=== PATIENT | female | born 1960 | race Caucasian/White ===

== ENCOUNTER 2017-07-20 15:16 | Outpatient (CLI) | payer BC | END 2017-07-20 15:17 | disposition home or self-care (01) | LOC: BICMAMMO 15:16 | PROVIDERS: ATTEND Obstetrics & Gynecology | DX: Z12.31 Encounter for screening mammogram for malignant neoplasm of breast (principal) | CPT/HCPCS: 77063; 77067 ==

== ENCOUNTER 2018-08-24 08:33 | Outpatient (CLI) | payer BC ==
--- NOTE | 2018-08-24 11:24 | CT ---
CT ABDOMEN AND PELVIS WITH ORAL AND IV CONTRAST: Date: 08/24/18 HISTORY: Nausea, vomiting, and rectal bleeding. FINDINGS: There are no previous exams for comparison. The lung bases are clear. The liver demonstrates decreased attenuation compared to the spleen, consistent with fatty infiltrati on. There are a few low density lesions in the liver, the largest measuring 1.0 cm in the right lobe. A 3.0 mm low density lesion is seen in the left lobe and a 2.0 mm lesion is seen in the inferior asp ect of the right lobe. In the absence of known malignancy, these are statistically likely to represen t benign findings. The patient is post cholecystectomy. The spleen, pancreas, adrenal glands, and kidneys are normal. No free air, free fluid, or lymphadenopathy seen in the abdomen or pelvis. Uterus and ovaries are pre sent. The small bowel loops are not abnormally dilated. A normal appearing appendix is noted. There i s fecal material in the colon. There is no evidence of aneurysmal dilatation of the abdominal aorta. There are degenerative changes in the spine. A diverticulum is seen arising from the second portion o f the duodenum. IMPRESSION: 1. Fatty liver. 2. Small, low density lesions in the liver, statistically likely to represent benign findings in the absence of known malignancy. 3. Duodenal diverticulum. 4. Constipation. POS: OFF
[2018-08-24] MEDS ORDERED: Iopamidol 370 76% 100 ML VIAL ONE (13:42)
== END 2018-08-24 08:34 | disposition home or self-care (01) ==
LOC: CT 08:33
PROVIDERS: ATTEND Internal Medicine Gastroenterology
DX: K62.5 Hemorrhage of anus and rectum (principal); R11.2 Nausea with vomiting, unspecified; R19.7 Diarrhea, unspecified; K76.0 Fatty (change of) liver, not elsewhere classified; K57.10 Diverticulosis of small intestine without perforation or abscess without bleeding; K76.9 Liver disease, unspecified
CPT/HCPCS: 74177; 82565; Q9967

== ENCOUNTER 2023-01-09 14:36 | Outpatient (CLI) | payer BC | END 2023-01-09 14:37 | disposition home or self-care (01) | LOC: BICCT 14:36 | PROVIDERS: ATTEND Anesthesiology | DX: M54.12 Radiculopathy, cervical region (principal); M47.812 Spondylosis without myelopathy or radiculopathy, cervical region; E04.1 Nontoxic single thyroid nodule | CPT/HCPCS: 72125 ==